=== PATIENT | male | born 1965 | race Caucasian/White ===

== ENCOUNTER 2016-12-12 13:35 | Outpatient (CLI) ==
[2015-01-12 19:22] VITALS: BMI 47.4
[2016-12-12 14:17] LABS: ANION GAP 15.5; BUN/CREATININE RATIO 9.64; CALCIUM 9.9 mg/dL (8.2-10.2); CREATININE 1.14 mg/dL (0.60-1.10); POTASSIUM 4.5 mmol/L (3.5-5.1)
== END 2016-12-12 13:36 | disposition home or self-care (01) ==
LOC: LAB 13:35
DX: I10 Essential (primary) hypertension (principal); E11.9 Type 2 diabetes mellitus without complications; Z01.812 Encounter for preprocedural laboratory examination; I21.3 ST elevation (STEMI) myocardial infarction of unspecified site
CPT/HCPCS: 36415; 80048; 93005; 93010

== ENCOUNTER 2017-05-30 08:07 | Outpatient (CLI) ==
[2015-01-12 19:22] VITALS: BMI 47.4
--- NOTE | 2017-05-30 09:20 | US ---
EXAM: Ultrasound abdomen limited. HISTORY: Abdominal pain. COMPARISON: CT 11/10/2013. TECHNIQUE: Abdominal, real time with image documentation: limited (eg, single organ, quadrant, fol low-up) FINDINGS: The liver demonstrates increased parenchymal echogenicity with focal sparing near the gal lbladder. There is no intrahepatic biliary dilatation. Portal venous flow is normal in direction. The gallbladder is without shadowing stones, wall thickening or pericholecystic fluid. Common duct measures approximately 0.5 cm. Visualized portions of the pancreas are unremarkable. IMPRESSION: Fatty infiltration of the liver.
== END 2017-05-30 08:08 | disposition home or self-care (01) ==
LOC: RAD 08:07
PROVIDERS: ATTEND Nurse Practitioner Family
DX: R10.9 Unspecified abdominal pain (principal); M54.9 Dorsalgia, unspecified

== ENCOUNTER 2017-06-18 13:13 | Outpatient (CLI) ==
[2015-01-12 19:22] VITALS: BMI 47.4
--- NOTE | 2017-06-18 13:55 | DI ---
EXAM: Six views of the cervical spine HISTORY: Neck pain. COMPARISON: None FINDINGS: There is straightening the cervical spine. There is minimal narrowing and osteophyte form ation noted at C5-C6. The facets and posterior processes are normal. Neural foramen are patent. T he odontoid process is normal. IMPRESSION: Mild straightening the cervical spine with narrowing and osteophyte formation at C5-C6.
--- NOTE | 2017-06-18 13:56 | DI ---
EXAM: Three views of the thoracic spine. History: Thoracic back pain. Findings: A focal kyphosis centered within the lower thoracic and upper lumbar spine with associate d mild vertebral body wedge deformities with no acute cortical breaks identified. No subluxation. Moderate disc space narrowing within the lower thoracic and upper lumbar spine with a few prominent anterior osteophytes. Mild disc space narrowing seen elsewhere. Impression: No definite acute fractures. Focal kyphosis within the lower thoracic spine. Degenerat grzegorz changes.
--- NOTE | 2017-06-18 14:05 | DI ---
EXAM: Five views of the lumbar spine HISTORY: Back pain. COMPARISON: MRI lumbar spine 11/16/2013 FINDINGS: There is exaggerated lumbar curvature. There is 0.5 cm of retrolisthesis of L2 on L3 and 0.5 cm of retrolisthesis of L1 on L2. There is multilevel scattered facet arthropathy. Chronic wedge deformity is noted at L1 and T12. Lumbosacral junction is intact. Soft tissues are unremarkable. IMPRESSION: 1. No acute compression fracture with retrolisthesis of L2-L3 and L1-L2. Chronic wedge deformity at L1 and T12. 2. Multilevel degenerative disease of the lumbar spine.
== END 2017-06-18 13:14 | disposition home or self-care (01) ==
LOC: RAD 13:13
PROVIDERS: ATTEND Nurse Practitioner Family
DX: M54.9 Dorsalgia, unspecified (principal)

== ENCOUNTER 2017-09-20 12:54 | Emergency (ER) ==
[2017-09-20 13:07] VITALS: BP 150/96; TEMP 98.2; BMI 46.3
--- NOTE | 2017-09-20 13:26 | ED.PDOC ---
General ED Provider: Dr. LEE SOLOMON Chief Complaint: Abdominal Pain Stated Complaint: Left sided abd pain x 1+ months, worse since last evening. No N/V/D/C. No fever or chills. No other symptoms. PCP's previous w/u, including Abd US, was negative. Note: Abd US was done in May 2017 (4 months ago). Time Seen by Physician: 13:22 Mode of Arrival: Walk-In Information Source: Patient Exam Limitations: No limitations Primary Care Provider: BALA WRAY Nursing and Triage Documentation Reviewed and Agree: Yes GI Complaint Exam - Abdominal Pain Complaint/Exam Onset: Gradual Duration: 1+ months Symptoms Are: Still present Timing: Constant Initial Severity: Mild Current Severity: Moderate (severe last night) Location of Pain: LUQ Radiates To: Reports: LLQ Character: Reports: Aching, Throbbing, Cramping Aggravating: Reports: Movement (palpation) Alleviating: Reports: None (eases spontaneously but never resolves) AAA Risk Factors: Reports: Hypertension Cardiac Risk Factors: Reports: Hypertension Testicular Torsion Risk Factors: Reports: None Surgical Obstruction Risk Factors: Reports: None Related Surgical History: Reports: None Abdominal Findings: Present: None (except moderate tenderness of LUQ, no rebound , no guarding) Differential Diagnoses: Diverticulitis, Gastroenteritis, Ureteral Stone, UTI Review of Systems - Review Of Systems Constitutional: Reports: No symptoms Respiratory: Reports: No symptoms Cardiac: Reports: No symptoms GI: Reports: Abdominal pain : Reports: No symptoms Musculoskeletal: Reports: No symptoms Skin: Reports: No symptoms Neurological: Reports: No symptoms All Other Systems: Reviewed and Negative Past Medical History - Past Medical History Previously Healthy: Yes Endocrine: Reports: None Cardiovascular: Reports: CAD, Hypertension Respiratory: Reports: None Hematological: Reports: None Gastrointestinal: Reports: Liver (fatty liver noted on Abd US) Genitourinary: Reports: None Neuro/Psych: Reports: None Musculoskeletal: Reports: Back Pain (chronic) Cancer: Reports: None - Surgical History General Surgical History: Reports: Stent (cardiac x 1), Orthopedic (r knee) - Family History Family History: Reports: Unknown - Social History Smoking Status: Former smoker Hx Substance Use: No Alcohol Screening: Occasionally Lives: With family - Immunizations Tetanus Shot up to Date: No Influenza Vaccine within 12 Months: No Pneumococcal Vaccine up to Date: No Physical Exam - Physical Exam Appearance: Well-nourished, Obese Ill-appearing: None Pain Distress: None Respiratory: Airway patent, Breath sounds clear, Breath sounds equal, Respirations nonlabored Cardiovascular: RRR, Pulses normal, No rub, No murmur GI/: Soft, No masses, Bowel sounds normal, No Organomegaly, Tender (moderate LUQ tenderness, no rebound or guarding) Musculoskeletal: Normal strength, ROM intact, No edema, No calf tenderness Skin: Warm, Dry, Normal color Neurological: Sensation intact, Motor intact, Reflexes intact, Cranial nerves intact, Alert, Oriented Psychiatric: Affect appropriate, Mood appropriate Re-Evaluation - Re-Evaluation Time of Re-Evaluation: 16:22 Status: Improved Vital Signs Stable: Yes Pain Level: 210 Appearance: NAD Lungs: Clear Skin: Warm and Dry Neuro: Alert and Oriented X3 CV: RRR Additional Comments: Patient states abd pain much improved after GI cocktail, back aches (norm) Physician Notification - Case Discussed Physician Notified: Dr. Mathew Critical Care Note - Critical Care Note Total Time (mins): 0 Course - Course Hematology/Chemistry: 09/20/17 13:45 09/20/17 13:45 Orders, Labs, Meds: Lab Review 09/20/17 09/20/17 09/20/17 13:35 13:45 13:45 WBC 10.52 H RBC 5.40 Hgb 17.2 Hct 45.8 MCV 84.8 MCH 31.9 H MCHC 37.6 H RDW Coeff of Ellen 13.1 Plt Count 228 Immature Gran % (Auto) 0.9 Neut % (Auto) 76.5 Lymph % (Auto) 11.2 Fajardo % (Auto) 7.5 Eos % (Auto) 3.1 Baso % (Auto) 0.8 Immature Gran # (Auto) 0.1 Neut # 8.1 H Lymph # 1.2 Fajardo # 0.8 Eos # 0.3 Baso # 0.1 Sodium 136 Potassium 4.2 Chloride 101 Carbon Dioxide 12 L Anion Gap 27.2 BUN 11 Creatinine 0.82 Estimated GFR (MDRD) 99.00 BUN/Creatinine Ratio 13.41 Glucose 227 H Calcium 10.4 H Total Bilirubin 0.42 AST 19 ALT 20 Alkaline Phosphatase 83 Total Protein 9.1 H Albumin 3.5 Globulin 5.6 Albumin/Globulin Ratio 0.63 Amylase 38 Lipase 74 Urine Color Yellow Urine Clarity Clear Urine pH 6.0 Ur Specific [place] 1.015 Urine Protein 2+ Urine Glucose (UA) 2+ Urine Ketones 3+ Urine Blood Trace-lysed Urine Nitrite Negative Urine Bilirubin 1+ Urine Urobilinogen 0.2 Ur Leukocyte Esterase Negative Urine Microscopic RBC 0-2 Ur Squamous Epith Cells 0-2 Orders Category Date Time Status AMYLASE Stat LAB 09/20/17 13:45 Completed CBC W/ AUTO DIFF Stat LAB 09/20/17 13:45 Completed COMPREHENSIVE METABOLIC PANEL Stat LAB 09/20/17 13:45 Completed LIPASE Stat LAB 09/20/17 13:45 Completed URINALYSIS C & S IF INDICATED Stat LAB 09/20/17 13:35 Completed Mag-Al Plus//Lidocaine [Gi Cocktail] MEDS 09/20/17 15:18 Discontinued 30 ml PO ONCE STA Medications Discontinued Medications Generic Name Dose Route Start Last Admin Trade Name Freq PRN Reason Stop Dose Admin Al Hydroxide/Mg Hydroxide 30 ml 09/20/17 15:18 09/20/17 15:24 Gi Cocktail PO 09/20/17 15:19 30 ml ONCE STA Administration Vital Signs: Temp Pulse Resp BP Pulse Ox 09/20/17 12:57 98.2 F 90 22 150/96 H 96 Departure - Departure Time of Disposition: 16:30 Disposition: HOME SELF-CARE Discharge Problem: Chronic gastritis Qualifiers: Gastritis type: unspecified gastritis Gastritis bleeding: without bleeding Qualified Code(s): K29.50 - Unspecified chronic gastritis without bleeding Discharge Problem: (Ruled Out): Abdominal pain, chronic, left upper quadrant Instructions: Gastritis (ED) Condition: Good Pt referred to PMD for follow-up: Yes (Follow up with PCP regarding symptoms, consider GI consult) Additional Instructions: Follow up with your doctor. Prescriptions: Omeprazole [Prilosec] 20 mg PO DAILY #30 capsule. Allergies/Adverse Reactions: Allergies No Known Allergies Allergy (Verified 09/20/17 13:06) Home Medications: Ambulatory Orders Carvedilol [Carvedilol] 6.25 mg PO BID 12/22/14 Fenofibrate [Fenofibrate] 1 tab PO DAILY 12/22/14 Fluoxetine HCl 60 mg PO DAILY 12/22/14 Glipizide [Glipizide] 10 mg PO BID 12/22/14 Lisinopril [Lisinopril] 5 mg PO BID 12/22/14 Insulin Glargine,Hum.rec.anlog [Lantus] 100 unit SQ DAILY vial 11/29/15 Metformin HCl 1,000 mg PO BID 11/29/15 Potassium Gluconate [Potassium] 99 mg PO DAILY 11/29/15 Aspirin [Low Dose Aspirin Ec] 81 mg PO DAILY 11/13/16 Linagliptin [Tradjenta] 5 mg PO DAILY 11/13/16 Tadalafil [Cialis] 5 mg PO DAILY 11/13/16 Atorvastatin Calcium [Lipitor] 40 mg PO DAILY 09/20/17 Hydrocodone/Acetaminophen [Hydrocodon-Acetaminophn 10-325] 1 each PO QID Omeprazole [Prilosec] 20 mg PO DAILY #30 capsule. 09/20/17 Disposition Discussed With: Patient
[2017-09-20 14:21] LABS: ALBUMIN 3.5 g/dL (3.4-5.0); ALBUMIN/GLOBULIN RATIO 0.63; ANION GAP 27.2; BILIRUBIN,TOTAL 0.42 mg/dL (0.00-1.20); BUN/CREATININE RATIO 13.41; CALCIUM 10.4 mg/dL (8.2-10.2); CREATININE 0.82 mg/dL (0.60-1.10); POTASSIUM 4.2 mmol/L (3.5-5.1); TOTAL PROTEIN 9.1 g/dL (6.4-8.2)
[2017-09-20 14:42] LABS: BASOPHILS # (AUTO) 0.1 K/uL (0-0.2); BASOPHILS % (AUTO) 0.8 % (0.0-3.0); EOSINOPHILS # (AUTO) 0.3 K/ul (0.0-0.7); EOSINOPHILS % (AUTO) 3.1 % (0.0-7.0); HEMATOCRIT 45.8 % (42.0-52.0); HEMOGLOBIN 17.2 g/dl (14.0-18.0); IMMATURE GRANULOCYTE % (AUTO) 0.9 % (0.0-5.0); LYMPHOCYTES # (AUTO) 1.2 K/uL (0.60-3.4); LYMPHOCYTES % (AUTO) 11.2 (10.0-50.0); MEAN CORPUSCULAR HEMOGLOBIN 31.9 pg (27.0-31.0); MEAN CORPUSCULAR HGB CONC 37.6 (31.8-35.4); MEAN CORPUSCULAR VOLUME 84.8 fl (80.0-94.0); MONOCYTES # (AUTO) 0.8 K/uL (0.4-2.0); MONOCYTES % (AUTO) 7.5 (0-10); NEUTROPHILS # (AUTO) 8.1 K/ul (2.0-6.9); NEUTROPHILS % (AUTO) 76.5; PLATELET COUNT 228 10^3/uL (140-440); WHITE BLOOD COUNT 10.52 K/ul (4.2-10.2)
[2017-09-20 14:58] LABS: BILIRUBIN,URINE 1+ (NEGATIVE); KETONES,URINE 3+ (NEGATIVE); LEUKOCYTE ESTERASE ,URINE Negative (NEGATIVE); NITRITE,URINE Negative (NEGATIVE); PROTEIN,URINE 2+ (NEGATIVE); URINE, BLOOD Trace-lysed (NEGATIVE)
[2017-09-20 15:13] LABS: ADD URINE MICROSCOPIC YES
[2017-09-20] MEDS ORDERED: GI COCKTAIL PO STA (15:18)
== END 2017-09-20 16:40 | disposition home or self-care (01) ==
LOC: ED 12:54
DX: K29.50 Unspecified chronic gastritis without bleeding (principal); I10 Essential (primary) hypertension; I25.10 Atherosclerotic heart disease of native coronary artery without angina pectoris; K76.0 Fatty (change of) liver, not elsewhere classified; Z79.899 Other long term (current) drug therapy
CPT/HCPCS: 36415; 80053; 81001; 82150; 83690; 85025; 99283

== ENCOUNTER 2017-09-23 13:46 | Outpatient (CLI) ==
--- NOTE | 2017-09-23 16:39 | MRI ---
EXAM: MRI lumbar spine without IV contrast. DATE: 23 September 2017. HISTORY: Lumbar back pain. Dorsaligia. TECHNIQUE: Sagittal and axial T1W and T2W sequences of the lumbar spine along with sagittal IR and c oronal T2W sequences were obtained using 1.2 Livia magnet. No IV contrast. COMPARISON: LS spine series 06/18/2017. T-spine series 06/18/2017. MRI L-spine 11/16/2013. FINDINGS: There are five [id number] lumbar vertebra. There is no lumbar scoliosis. A 3 mm ante rior subluxation of L2 relative to L1 and 1.8 mm anterolisthesis of L3 relative to L2 are demonstrate d. No other subluxation, acute fracture, osseous malignancy, or pars interarticularis defect is iden tified. Mild anterior wedge appearance of T12 and minor anterior wedging of T11 and L1 appear chroni c. Lumbar vertebra are otherwise normal in height. Chronic Schmorl's nodes are revealed at T11, T12 , L1, L2, L3, L5. Large osteophytes are observed at T12-L1 and L1-2. Bone marrow signal is overall normal. Intervertebral discs are normal in height. No sacral fracture or stress reaction is apparen t. SI joints are normal. Conus medullaris terminates at L1. Visible spinal cord is normal. No retroperitoneal lymphadenopathy, paraspinal mass, or aortic aneurysm is detected. Paraspinal musc ulature is symmetric bilaterally. Visible portions of the liver, spleen, adrenal glands, and kidneys reveal no definitive abnormality; however, these structures are limited by breathing motion artifact s. Segmental analysis: T11-12: Normal. T12-L1: Tiny posterior disc bulge. No cord compression, cause central stenosis or foraminal stenosi s. L1-2: Minimal anterior subluxation of L2, small concentric disc bulge, mild facet arthropathy, mild ligamentum flavum hypertrophy and dorsal epidural fat cause severe central canal stenosis, mild right foraminal stenosis, and mild/moderate left foraminal stenosis. L2-3: Minor anterior subluxation of L3, small concentric disc bulge, mild bilateral facet arthropath y, mild ligamentum flavum hypertrophy, and abundant dorsal epidural fat cause moderate/marked central canal stenosis and mild to moderate bilateral foraminal stenoses. L3-4: Small concentric disc bulge, mild bilateral facet arthropathy, mild ligamentum flavum hypertro phy and dorsal epidural fat cause mild central canal stenosis, moderate right foraminal stenosis, and marked left foraminal stenosis. Left L3 nerve root contacts the disc bulge in the foramen. L4-5: Small concentric disc bulge, minor facet arthropathy, and slight ligamentum flavum hypertrophy cause mild right and mild/moderate left foraminal stenoses. Each L4 nerve root contacts the disc bu lge near the foramen. No central canal stenosis. L5-S1: Minor posterior to right foraminal disc bulge and minor facet arthropathy cause mild right fo raminal narrowing. Thecal sac is slightly narrow due to abundant epidural fat. IMPRESSIONS: 1. Thoracic spine marked spondylosis, moderate facet arthropathy, minor subluxations (L1-2 and L2-3) , and multilevel DDD - - overall slightly worse compared to November 2013. 2. Multilevel foraminal stenoses as described. Left L3 and both L4 nerve roots contact disc bulges near the foramen, and may be sources for pain/radiculopathy. 3. Multilevel central canal stenoses (L1-2: Severe. L2-3: Moderate/marked. L3-4: Mild.) 4. Spinal lipomatosis in the lumbar and sacral spine. 5. Old wedge compressions of T11, T12, and L1. 6. T-L-spine small, chronic Schmorl's nodes. 7. Moderate abdominal aortic atherosclerosis.
== END 2017-09-23 13:47 | disposition home or self-care (01) ==
LOC: RAD 13:46
PROVIDERS: ATTEND Nurse Practitioner Family
DX: M54.9 Dorsalgia, unspecified (principal)

== ENCOUNTER 2019-02-10 12:51 | Emergency (ER) | payer OTHER ==
[2019-02-10 13:02] VITALS: BP 168/94; TEMP 98.4; BMI 44.8
--- NOTE | 2019-02-10 14:40 | ED.PDOC ---
General ED Provider: Dr. SHEREE HEREDIA Chief Complaint: Foot Pain/Injury Stated Complaint: Twisted Rt Ankle Time Seen by Physician: 14:00 Mode of Arrival: Walk-In Information Source: Patient Exam Limitations: No limitations Primary Care Provider: BALA WRAY Nursing and Triage Documentation Reviewed and Agree: Yes Does patient meet sepsis criteria?: No If yes, has appropriate treatment been initiated?: No System Inflammatory Response Syndrome: Not Applicable Sepsis Protocol: For patient's 13 years and over: Temp is 96.8 and below OR 101 and greater Pulse >90 BPM Resp >20/minute Acutely Altered Mental Status Are patient's symptoms suggestive of a new infection, such as: -Pneumonia -Skin, Soft Tissue -Endocarditis -UTI -Bone, Joint Infection -Implantable Device -Acute Abdominal Infection -Wound Infection -Meningitis -Blood Stream Catheter Infection -Unknown Musculoskeletal Complaint Exam - Ankle/Foot Complaint/Exam Location of Injury: Reports: Right, Ankle Mechanism of Injury: Reports: Trauma Onset/Duration: 1 wk Symptoms Are: Reports: Still present Onset of Pain: Reports: Immediate Initial Severity: Moderate Current Severity: Moderate Location: Reports: Diffuse (lat malleolus) Character: Reports: Aching, Throbbing Alleviating: Reports: Rest Aggravating: Reports: Movement, Weight bearing Able to Bear Weight: Yes (painful) Associated Signs and Symptoms: Reports: Swelling, Bruising Related History: Denies: Similar episode Gout Risk Factors: Reports: None Related Surgical History: Reports: None Lower Extremity Findings: Present: Erythema, Warmth, Tenderness Achilles Tendon Abnormality: No Tenderness: Present: Lateral malleolus Limited Range of Motion: Present: Inversion, Dorsiflexion Differential Diagnosis: Closed Fracture, Sprain, Strain Review of Systems - Review Of Systems Constitutional: Reports: No symptoms Eyes: Reports: No symptoms Ears, Nose, Mouth, Throat: Reports: No symptoms Respiratory: Reports: No symptoms Cardiac: Reports: No symptoms GI: Reports: No symptoms : Reports: No symptoms Musculoskeletal: Reports: No symptoms, Joint pain Skin: Reports: No symptoms Neurological: Reports: No symptoms Endocrine: Reports: No symptoms Hematologic/Lymphatic: Reports: No symptoms All Other Systems: Reviewed and Negative Past Medical History - Past Medical History Previously Healthy: Yes Endocrine: Reports: None Cardiovascular: Reports: CAD, Hypertension Respiratory: Reports: None Hematological: Reports: None Gastrointestinal: Reports: Liver (fatty liver noted on Abd US) Genitourinary: Reports: None Neuro/Psych: Reports: None Musculoskeletal: Reports: Back Pain (chronic) Cancer: Reports: None - Surgical History General Surgical History: Reports: Stent (cardiac x 1), Orthopedic (r knee) - Family History Family History: Reports: Unknown - Social History Smoking Status: Former smoker Hx Substance Use: No Alcohol Screening: Occasionally - Immunizations Influenza Vaccine within 12 Months: No Pneumococcal Vaccine up to Date: No Physical Exam - Physical Exam Appearance: Well-appearing, No pain distress, Well-nourished Eyes: PEGGY, EOMI, Conjunctiva clear ENT: Ears normal, Nose normal, Oropharynx normal Respiratory: Airway patent, Breath sounds clear, Breath sounds equal, Respirations nonlabored Cardiovascular: RRR, Pulses normal, No rub, No murmur GI/: Soft, Nontender, No masses, Bowel sounds normal, No Organomegaly Musculoskeletal: Normal strength, ROM intact, No edema, No calf tenderness, Limited strength (rt ankle) Skin: Warm, Dry, Normal color Neurological: Sensation intact, Motor intact, Reflexes intact, Cranial nerves intact, Alert, Oriented Psychiatric: Affect appropriate, Mood appropriate Interpretation - Radiology Interpretation Radiology Interpretation By: Radiologist Radiology Results: Positive Exam Interpreted: Other (Lt foot/distal fibular fracture 2.2 cm above fibular tip) Critical Care Note - Critical Care Note Total Time (mins): 0 Course - Course Orders, Labs, Meds: Orders Category Date Time Status CRUTCHES [ED CRUTCHES] .ONCE EMERGENCY 02/10/19 16:21 Active Splint [ED SPLINT APPLICATION] .ONCE EMERGENCY 02/10/19 16:20 Active ANKLE, RIGHT MIN 3 VIEWS Stat RADS 02/10/19 14:38 Completed Vital Signs: Temp Pulse Resp BP Pulse Ox 02/10/19 12:51 98.4 F 84 18 168/94 H 97 Departure - Departure Time of Disposition: 16:00 Disposition: HOME SELF-CARE Discharge Problem: Closed right fibular fracture, Right ankle sprain Instructions: Ankle Sprain (ED) Condition: Fair Pt referred to PMD for follow-up: Yes (see PCP or dental specialist in next 48 hrs) IPMP verified?: No Additional Instructions: Rt Ankle Splint Crutches non weight bearing ambulation /ice and elevate Call for ortho apt this week Tylenol or advil for pain as needed Allergies/Adverse Reactions: Allergies No Known Allergies Allergy (Verified 02/10/19 12:54) Home Medications: Ambulatory Orders Carvedilol 6.25 mg PO DAILY 12/22/14 Fenofibrate 160 mg PO DAILY 12/22/14 Fluoxetine HCl 40 mg PO DAILY 12/22/14 Glipizide 10 mg PO BID 12/22/14 Lisinopril 5 mg PO BID 12/22/14 Metformin HCl 1,000 mg PO BID 11/29/15 Potassium Gluconate [Potassium] 99 mg PO DAILY 11/29/15 Aspirin [Low Dose Aspirin Ec] 81 mg PO DAILY 11/13/16 Atorvastatin Calcium [Lipitor] 40 mg PO DAILY 09/20/17 Hydrocodone/Acetaminophen [Hydrocodon-Acetaminophn 10-325] 1 each PO QID Aripiprazole [Abilify] 5 mg PO DAILY 02/10/19 Diazepam [Valium] 5 mg PO Q12HR 02/10/19 Empagliflozin/Metformin HCl [Synjardy 12.5-1,000 mg Tablet] 1 each PO BID Gabapentin 300 mg PO DAILY 02/10/19 Insulin Aspart [Novolog] See Protocol SQ TID 02/10/19 Insulin Glargine,Hum.rec.anlog [Basaglar Kwikpen U-100] 80 unit SQ BEDTIME 02/10 Semaglutide [Ozempic] 0.25 mg SQ WEEKLY 02/10/19 Disposition Discussed With: Patient, Family
--- NOTE | 2019-02-10 14:58 | DI ---
EXAM: RIGHT ANKLE THREE VIEWS HISTORY: Sprained ankle FINDINGS: There is an oblique fracture of the distal fibula beginning approximately 2.2 cm above the fibular tip. No subluxation of the ankle joints is noted. No other fractures are seen. Probable s mall joint effusion. IMPRESSION: 1. Distal fibular fracture.
== END 2019-02-10 16:46 | disposition home or self-care (01) ==
LOC: ED 12:51
DX: M25.571 Pain in right ankle and joints of right foot (principal); M25.471 Effusion, right ankle; S90.01XA Contusion of right ankle, initial encounter; S93.401A Sprain of unspecified ligament of right ankle, initial encounter; S82.401A Unspecified fracture of shaft of right fibula, initial encounter for closed fracture
CPT/HCPCS: 99283